=== PATIENT | female | born 1965 | race Caucasian/White ===

== ENCOUNTER 2020-08-27 17:53 | Emergency (ER) | payer MEDICARE, OTHER ==
[~2020-08-27] VITALS: Ht 160 cm; Wt 59.0 kg
[2020-08-27] MEDS ORDERED: HYDROCODONE/APAP 5-325MG TABLET PO ONE (18:45)
[2020-08-27] MEDS ORDERED: HYDROCODONE/APAP 5-325MG TABLET ONE (18:46)
[2020-08-27] MEDS ORDERED: TRAMADOL HCL 50 MG TABLET PO ONE (18:47)
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
[2020-08-27] MEDS ORDERED: TRAMADOL HCL 50 MG TABLET ONE (18:53)
--- NOTE | 2020-08-27 19:38 | NUR ---
Patient given till 1999, then will be escorted to waiting room to wait for her ride.
--- NOTE | 2020-08-27 20:06 | NUR ---
Patient wishes to speak to web content & social media manager in the morning. Patient discharged to waiting room and will wait till the AM. ERMD aware. Patient A/Ox4. Denies any SI/HI or A/V hallucincations. Patient is able to ambulate with steady gait.
[2020-08-28] MEDS ORDERED: POTA20TA10 PO (06:10)
== END 2020-08-27 20:08 | disposition home or self-care (01) ==
LOC: ER 17:58
DX: K03.81 Cracked tooth (principal); G89.29 Other chronic pain; K08.89 Other specified disorders of teeth and supporting structures; Z76.5 Malingerer [conscious simulation]; Z59.0 Homelessness; Z88.8 Allergy status to other drugs, medicaments and biological substances; F41.8 Other specified anxiety disorders
CPT/HCPCS: A4663

== ENCOUNTER 2020-08-28 01:17 | Inpatient (IN) | payer MEDICARE, OTHER ==
[~2020-08-28] VITALS: Ht 160 cm; Wt 60.8 kg
--- NOTE | 2020-08-28 01:34 | NUR ---
Patient BIB RA909. Patient ambulatory with stable gait. A/Ox4. Patient was found laying in the grass in front of [employer] down the street. VSS. Respiratory even and unlabored, no cough no sob. Denies any cp or palpitations, or any cardiovascular distress.
[2020-08-28 01:52] LABS: BASOPHILS # (AUTO) 0.1 K/uL (0.0-8.0); BASOPHILS % (AUTO) 1.1 % (0.0-2.0); EOSINOPHILS # (AUTO) 0.3 K/uL (0.0-0.7); EOSINOPHILS % (AUTO) 2.8 % (0.0-7.0); HEMATOCRIT 28.6 % (31.2-41.9); HEMOGLOBIN 9.6 g/dL (10.9-14.3); LYMPHOCYTES # (AUTO) 2.8 K/uL (20.0-40.0); LYMPHOCYTES % (AUTO) 31.6 % (20.5-51.5); MEAN CORPUSCULAR HEMOGLOBIN 28.1 uug (24.7-32.8); MEAN CORPUSCULAR HGB CONC 34 g/dL (32.3-35.6); MONOCYTES # (AUTO) 0.7 K/uL (2.0-10.0); MONOCYTES % (AUTO) 8.2 % (0.0-11.0); NEUTROPHILS % (AUTO) 56.3 % (38.5-71.5); PLATELET COUNT (AUTO) 457 K/uL (179-408); RED BLOOD CELL COUNT(AUTO) 3.41 MIL/uL (3.63-4.92); WHITE BLOOD COUNT (AUTO) 8.9 K/uL (3.8-11.8)
[2020-08-28 01:59] LABS: ALANINE AMINOTRANSFERASE 18 U/L (14-59); ALKALINE PHOSPHATASE 93 U/L (50-136); ASPARTATE AMINOTRANSFERASE 14 U/L (15-37); BILIRUBIN,DIRECT < 0.1 mg/dL (0.0-0.2); BILIRUBIN,TOTAL 0.1 mg/dL (0.2-1.0); CARBON DIOXIDE 31 mmol/L (21-32); CHLORIDE 102 mmol/L (98-107); CREATININE 0.8 mg/dL (0.6-1.3); GLUCOSE 80 mg/dL (74-106); LIPASE 174 U/L (73-393); POTASSIUM 2.9 mmol/L (3.5-5.1); TOTAL PROTEIN, SERUM 7.2 g/dL (6.4-8.2); UREA NITROGEN, BLOOD 19 mg/dL (7-18)
[2020-08-28] MEDS ORDERED: POTASSIUM CHLORIDE 20 MEQ TAB.PRT.SR PO ONE (02:15)
--- NOTE | 2020-08-28 02:15 | NUR ---
Message left on Caryn, Crisis Team voicemail. Awaiting call back
[2020-08-28] MEDS ORDERED: POTASSIUM CHLORIDE 20 MEQ TAB.PRT.SR ONE (02:22)
--- NOTE | 2020-08-28 02:22 | NUR ---
Patient asked to provide a urine specimen, but states that she is unable at this time.
--- NOTE | 2020-08-28 02:38 | NUR ---
Caryn from crisis team called at [phone] without answer, message left with previous call
[2020-08-28 02:44] LABS: ETHANOL < 3 MG/DL (0-0)
[2020-08-28 02:45] LABS: ACETAMINOPHEN < 2.0 ug/mL (10-30)
--- NOTE | 2020-08-28 03:18 | NUR ---
Neil Wall was contacted and he said he wants to wait for urine drug screen to result then will come to evaluate the patient.
[2020-08-28 03:20] LABS: *BILIRUBIN,URIN NEGATIVE (NEGATIVE); *COLOR,URINE YELLOW (YELLOW); *KETONES,URINE NEGATIVE (NEGATIVE); *UROBILINOGEN,URINE 0.2 E.U./dl (NORMAL); LEUKOCYTE ESTERASE ,URINE TRACE (NEGATIVE); NITRITE, URINE NEGATIVE (NEGATIVE); PH,URINE 6.5 (5.0-8.0); UGLUCOSE NEGATIVE (NEGATIVE)
[2020-08-28 03:21] LABS: *BLOOD, URINE TRACE (NEGATIVE); *CLARITY,URINE HAZY (CLEAR)
[2020-08-28 03:36] LABS: *AMPHETAMINE, URINE POSITIVE (NEGATIVE); *CANNABINOID, URINE NEGATIVE (NEGATIVE); *COCCAINE, URINE NEGATIVE (NEGATIVE); *OPIATE, URINE NEGATIVE (NEGATIVE); *PHENCYCLIDINE SCREEN,URINE NEGATIVE (NEGATIVE)
[2020-08-28 03:40] LABS: BACTERIA,URINE MODERATE /HPF (NONE SEEN); SQUAMOUS EPITHELIAL CELL,UR MANY /HPF (NONE SEEN)
--- NOTE | 2020-08-28 03:49 | NUR ---
Neil Wall LCSW was notified of the UDS results. Art states to medicate the patient and he will see the patient later on in the morning time. ERMD aware. Will continue to observe/monitor. Patient is sleeping, no acute distress noted at this time.
[2020-08-28] MEDS ORDERED: CEphaleXIN 500 MG CAPSULE ONE (04:07)
[2020-08-28] MEDS ORDERED: CEphaleXIN 500 MG CAPSULE PO ONE (04:15)
--- NOTE | 2020-08-28 04:30 | NUR ---
Patient in bed sleeping, no acute distress noted. Will continue to monitor.
[2020-08-28] MEDS ORDERED: POTA20TA10 PO (06:10)
--- NOTE | 2020-08-28 06:10 | NUR ---
Neil Wall LCSW still has not arrived. Art did not answer, left message. Awaiting call back/arrival.
--- NOTE | 2020-08-28 06:57 | NUR ---
Neil Wall LCSW states that he will be on the way shortly ETA within the hour to evaluate the patient.
--- NOTE | 2020-08-28 07:38 | NUR ---
[facility] En abad per Dr. Valentín boone request talked to robb. robb said that there should be room avaiable after 11 am today, cj asked to fax the clinicals/ face sheet to [phone] around 0900 today.
--- NOTE | 2020-08-28 08:40 | NUR ---
bib gross at bedside.
--- NOTE | 2020-08-28 09:10 | NUR ---
hospital bf tray at bedside.
[2020-08-28 12:15] VITALS: BP_SYST 121; BP_SYST 131; BP_DIAS 59; BP_DIAS 68
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
--- NOTE | 2020-08-28 13:57 | NUR ---
Firearms Report DOJ: Cook Candy completed and submitted a [employer] firearms report for 5150 grave disability certification. A copy of report has been placed in patient chart.
--- NOTE | 2020-08-28 13:57 | NUR ---
SW Initial Discharge: Pt is currently homeless and will require a facility. Pt would want this specification writer to help pt find a place. This specification writer contacted pt's brother Jose ([phone]) to gather collateral and to discuss treatment plan. This specification writer contacted the phone number on facesheet but the number was disconnected. This specification writer will work with the MD to help coordinate proper discharge.
--- NOTE | 2020-08-28 13:57 | NUR ---
SW Family Contact: This publicity writer contacted pt's brother Jose ([phone]) to gather collateral and to discuss treatment plan. This publicity writer contacted the phone number on [employer] but the number was disconnected.
[2020-08-28] MEDS ORDERED: MAGNESIUM HYDROXIDE 30 ML LIQUID UDC PO PRN (14:00)
[2020-08-28] MEDS ORDERED: ACETAMINOPHEN 325 MG TABLET PO PRN (14:00)
[2020-08-28] MEDS ORDERED: TEMAZEPAM 7.5 MG CAPSULE PO PRN (14:00)
[2020-08-28] MEDS ORDERED: MAG HYDROX/AL HYDROX/SIMETH 30 ML LIQUID UDC PO PRN (14:00)
--- NOTE | 2020-08-28 14:14 | NUR ---
SW Substance Abuse Intervention: Patient was provided with a brief substance abuse intervention and provided resources to [facility] ([phone]), [facility] ([phone]), and [facility] ([phone]).
[2020-08-28] MEDS: CEphaleXIN 500 MG CAPSULE PO SCH ×2 (15:34→21:01)
[2020-08-28] MEDS: LORAZEPAM 1 MG TABLET PO PRN (15:41)
[2020-08-28 16:37] VITALS: BP 131/68
[2020-08-28] MEDS ORDERED: POTASSIUM CHLORIDE 20 MEQ TAB.PRT.SR PO SCH (17:00)
--- NOTE | 2020-08-28 17:38 | NUR ---
PATIENT IS MORE COOPERATIVE AT THIS TIME COMPLIANT WITH MEDICATIONS WAS MEDICATED WITH ATIVAN SHE STATED THAT SHE FEELS VERY ANXIOUS MRSA NARES COLLECTED AND SENT TO THE LAB DR VITALE ALSO CALLED AND SPOKE WITH THE PATIENT WILL CONTINUE TO OBSERVE.
[2020-08-28 20:04] VITALS: BP 114/43
[2020-08-28] MEDS: METOPROLOL TARTRATE 25 MG TABLET PO SCH (20:55)
--- NOTE | 2020-08-28 21:29 | NUR ---
Awake alert and oriented x3-4 Cooperative with care. Compliant with meds. Needs attended. Denies any pain nor any discomfort. No signs of agitation or restlessness. No inappropriate behavior noted. Will monitor patient. VSS.
[2020-08-29] MEDS: CEphaleXIN 500 MG CAPSULE PO SCH ×3 (05:19→21:09)
--- NOTE | 2020-08-29 05:54 | NUR ---
Slept well through out the night. Needs attended. Kept comfortable. On keflex `for UTI, given @ scheduled times. Will monitor patient. No distress noted.
[2020-08-29 07:30] VITALS: BP 134/65
[2020-08-29 07:44] LABS: BASOPHILS # (AUTO) 0.1 K/uL (0.0-8.0); BASOPHILS % (AUTO) 1.3 % (0.0-2.0); EOSINOPHILS # (AUTO) 0.2 K/uL (0.0-0.7); EOSINOPHILS % (AUTO) 2.3 % (0.0-7.0); HEMATOCRIT 27.3 % (31.2-41.9); HEMOGLOBIN 9.3 g/dL (10.9-14.3); LYMPHOCYTES # (AUTO) 2.2 K/uL (20.0-40.0); LYMPHOCYTES % (AUTO) 26.2 % (20.5-51.5); MEAN CORPUSCULAR HEMOGLOBIN 28.4 uug (24.7-32.8); MEAN CORPUSCULAR HGB CONC 34 g/dL (32.3-35.6); MEAN CORPUSCULAR VOLUME 83.5 fL (75.5-95.3); MONOCYTES # (AUTO) 0.6 K/uL (2.0-10.0); MONOCYTES % (AUTO) 7.7 % (0.0-11.0); NEUTROPHILS # (AUTO) 5.2 K/uL (1.8-8.9); NEUTROPHILS % (AUTO) 62.5 % (38.5-71.5); PLATELET COUNT (AUTO) 442 K/uL (179-408); RED BLOOD CELL COUNT(AUTO) 3.27 MIL/uL (3.63-4.92); WHITE BLOOD COUNT (AUTO) 8.4 K/uL (3.8-11.8)
[2020-08-29 07:56] LABS: THYROID STIMULATING HORMONE 0.685 mIU/mL (0.358-3.740)
[2020-08-29] MEDS: ESCITALOPRAM OXALATE 10 MG TABLET PO SCH (08:05)
[2020-08-29] MEDS: METOPROLOL TARTRATE 25 MG TABLET PO SCH ×2 (08:06→21:11)
[2020-08-29 08:16] LABS: BILIRUBIN,TOTAL 0.2 mg/dL (0.2-1.0); CREATININE 0.7 mg/dL (0.6-1.3); MAGNESIUM 2.1 mg/dL (1.8-2.4); PHOSPHOROUS 2.9 mg/dL (2.5-4.9); POTASSIUM 3.6 mmol/L (3.5-5.1); TOTAL PROTEIN, SERUM 6.3 g/dL (6.4-8.2)
--- NOTE | 2020-08-29 09:37 | NUR ---
SNF Referral: This sent clinicals to Priyanka ([phone]) to [facility]. This internal communications writer sent H & P notes, medications, and laboratory results.
[2020-08-29 16:00] VITALS: BP 126/77
[2020-08-29] MEDS: ENSURE ENLIVE (VAN) 240 ML LIQUID PO SCH (17:00)
--- NOTE | 2020-08-29 17:25 | NUR ---
received patient AOx3-4, patient has poor insights, isolative, anxious, needy, asking for cranberry juice, patient took a shower but refused to change clothing, patient has been getting phone call with the boyfriend/fiancee, patient has calm mood, however, soft speech, maintained eye contact, denies SI and Hi, denies Having AH and VH, monitored q 15minutes for safety, refused to attend group activities, compliant with medication, patient remain isolative , no sign of any distress at this time
[2020-08-29 20:07] VITALS: BP 139/70
[2020-08-30] MEDS: CEphaleXIN 500 MG CAPSULE PO SCH ×3 (05:42→21:19)
[2020-08-30 07:30] VITALS: BP 159/65
[2020-08-30] MEDS: ENSURE ENLIVE (VAN) 240 ML LIQUID PO SCH ×2 (08:00→17:00)
[2020-08-30] MEDS: ESCITALOPRAM OXALATE 10 MG TABLET PO SCH (08:04)
[2020-08-30] MEDS: METOPROLOL TARTRATE 25 MG TABLET PO SCH ×2 (08:04→20:20)
--- NOTE | 2020-08-30 13:06 | NUR ---
SNF Contact: This keno writer/runner received a phone call from [employer] admin ([phone]) who stated [facility] is unable to accept pts at the moment due to positive covid pt. This keno writer/runner received a phone call from Irma from [facility] ([phone]) who stated pt is accepted.
--- NOTE | 2020-08-30 14:55 | NUR ---
SW Note: This brief writer met with pt to discuss discharge plan. Pt stated that she wants to move back in with her partner Franike ([phone]) who is willing to accept pt at his home. This brief writer will contact Frankie to confirm.
--- NOTE | 2020-08-30 14:55 | NUR ---
SW Family Contact: This technical writer contacted pt's partner Frankie ([phone]) to discuss discharge plan. Frankie stated upon discharge he will pick pt up from the hospital and will take her back to his place. Address: [address] [place] [address], [place] [address]; ([phone]).
--- NOTE | 2020-08-30 15:40 | NUR ---
Individual Intervention: trail maintenance worker met with patient for brief counseling to address patient's paranoid thought content. Patient appeared with low mood and withdrawn in her room. Patient did not want individual counseling at this moment. She stated "I have a UTI, I don't feel that great right now... Please come back later". This abstract writer attempted to provide therapy but pt refused.
[2020-08-30 16:13] VITALS: BP 133/72
--- NOTE | 2020-08-30 18:10 | NUR ---
received patient AOx3-4,compliant with meds, isolative withdrawn, patient needy been asking for ice and cranberry juice , patient increased appetite, needs to set limit, patient no distress at this time denies SI and Hi
[2020-08-30 20:25] VITALS: BP 124/63
[2020-08-31] MEDS: CEphaleXIN 500 MG CAPSULE PO SCH ×3 (06:00→20:19)
[2020-08-31 07:30] VITALS: BP 111/52
[2020-08-31] MEDS: ENSURE ENLIVE (VAN) 240 ML LIQUID PO SCH ×2 (08:00→17:00)
[2020-08-31] MEDS: ESCITALOPRAM OXALATE 10 MG TABLET PO SCH (08:23)
[2020-08-31] MEDS: METOPROLOL TARTRATE 25 MG TABLET PO SCH ×2 (08:23→20:20)
--- NOTE | 2020-08-31 11:06 | NUR ---
SW Note: This machine sign writer discussed discharge plan with pt again and stated she has options and is accepted at [facility] ([phone]). Patient refused and stated "I do not need to got a SNF I am young". She stated she wants to move in with her boyfriend Frankie. Patient refuses any other placements.
--- NOTE | 2020-08-31 14:11 | NUR ---
Pt quite needy at this time. Noted with impaired thought process. Requested grievance paperwork because she was unsatisfied that Dr. Greer spoke to her via Zoom. Also adjusto writer operator received a call from [facility] stating pt called them and asking them for a grievance form. Grievance form given to pt. Pt then states she wants to talk to the "short charge nurse with the blonde hair." Explained to her that is a social worker palliative care Mary Anne and this adjusto writer operator is the charge nurse. Pt does not believe adjusto writer operator and demanded for adjusto writer operator to call Mary Anne at once. Explained that she will come to unit sometime today. Pt then stated " If you're not gonna call her, then i'm going to have to tell Dr. Moody about you," and walked away.
--- NOTE | 2020-08-31 14:41 | NUR ---
Pt came to nurses station stating "Theirs something burning in my room." Casting Technician immediately followed pt to her room and did not smell or see anything unusual. Pt then stated "oh, it must have gone away."
[2020-08-31 16:00] VITALS: BP 135/61
[2020-08-31 19:51] VITALS: BP 152/75
[2020-09-01] MEDS: CEphaleXIN 500 MG CAPSULE PO SCH ×3 (05:54→21:13)
[2020-09-01 07:30] VITALS: BP 124/48
[2020-09-01] MEDS: ESCITALOPRAM OXALATE 10 MG TABLET PO SCH (08:26)
[2020-09-01] MEDS: ENSURE ENLIVE (VAN) 240 ML LIQUID PO SCH ×2 (08:26→17:20)
[2020-09-01] MEDS: METOPROLOL TARTRATE 25 MG TABLET PO SCH ×2 (08:27→21:09)
--- NOTE | 2020-09-01 10:52 | NUR ---
PT REMAINS EXCESSIVELY NEEDY AT THIS TIME. FREQUENTLY AT NURSES STATION MAKING MULTIPLE REQUESTS "I WANT CRANBERRY JUICE...I WANT ICE...I WANT THE PHONE... I NEED THINGS FROM MY BAG..." WHEN NURSES ARE BUSY WITH OTHER PTS, PT CONTINUES TO MAKE REQUESTS. LIMIT SETTING PROVIDED.
[2020-09-01 15:30] VITALS: BP 137/72
--- NOTE | 2020-09-01 16:20 | NUR ---
patient is anxious, restless, has poor boundaries, and is needy. patient is frequently at the nurses station asking for multiple different items. when staff attempts to limit set with patient, patient becomes angry. patient is also manipulative, asking different staff after limits have been set. patient provided with education about how to appropriately communicate her needs to staff and educated about impulse control.
--- NOTE | 2020-09-01 18:46 | NUR ---
patient at the nurses station asking for multiple diapers. she states that at night she becomes incontinent and wants to wear diapers. patient stated this happens 'all the time' but she has not mentioned this to staff before, nor mentioned to the MD. patient became angry when staff attempted to engage in further assessment about incontinence issues at night and refused to answer questions. she walked back to her room and stated "i'll talk to the night nurse." patient has had no episodes of incontinence at night or during the day since admission. patient is able to toilet herself independently.
[2020-09-01 19:52] VITALS: BP 127/65
--- NOTE | 2020-09-02 01:35 | NUR ---
RECEIVED PATIENT IN HER ROOM. SHE LATER CAME OUT TO DEMAND I GIVE HER A DIAPER. SHE SAID SHE WAS INCONTINENT AT NIGHT.WHEN I TOLD HER I WILL GIVE HER A PAD AND MONITOR THROUGH THE NIGHT TO SEE. SHE BECAME VERY ANGRY SAYING ' CALL MY DOCTOR. AM GOING TO REPORT ALL OF YOU. WHAT'S THE BIG DEAL ABOUT THIS'. LATER EDUCATED ABOUT HOW TO PROPERLY COMMUNICATE HER NEEDS AND IMPULSE CONTROL. SHE IS MEDICATION COMPLIANT. WILL CONTINUE TO MONITOR.
[2020-09-02] MEDS: CEphaleXIN 500 MG CAPSULE PO SCH ×2 (06:08→14:40)
--- NOTE | 2020-09-02 06:46 | NUR ---
SLEPT WELL FOR 9:00 HOURS.
[2020-09-02 07:30] VITALS: BP 118/60
[2020-09-02] MEDS: METOPROLOL TARTRATE 25 MG TABLET PO SCH ×2 (08:44→20:17)
[2020-09-02] MEDS: ESCITALOPRAM OXALATE 10 MG TABLET PO SCH (08:44)
[2020-09-02] MEDS: ENSURE ENLIVE (VAN) 240 ML LIQUID PO SCH ×2 (08:57→16:51)
--- NOTE | 2020-09-02 09:15 | NUR ---
PATIENT IS ASKING FOR CRANBERRY JUICE AND ICE SO OFFERED HER APPLE JUICE BECAUSE THERE WAS NO CRANBERRY JUICE IN THE FRIDGE UPSET THAT THERE SHOULD BE CRANBERRY JUICE IN THE FRIDGE AT ALL TIMES SO I TOLD HER THAT I WILL CALL THE KITCHEN FOR MORE CRANBERRY JUICE.
--- NOTE | 2020-09-02 09:30 | NUR ---
PATIENT SEEN WALKING UP AND DOWN BY THE [employer] STATION IN THE HALLWAY DRINKING THE APPLE JUICE.
--- NOTE | 2020-09-02 11:00 | NUR ---
PATIENT APPROACHED THE NURSES STATION STATED THAT SHE WANTED SAND WISH FOR LUNCH INSTEAD OF A MEAL KITCHEN NOTIFIED.
[2020-09-02 16:00] VITALS: BP 125/63
--- NOTE | 2020-09-02 17:00 | NUR ---
PATIENT IS AT THE NURSES STATED VERY OFTEN ASKING FOR ONE THING OR THE OTHER AND WHEN SHE IS TOLD TO WAIT FOR A FEW MINUTES FOR SOMETHING TO BE GIVEN TO HER SHE LEAVES AND SORT OUT ANOTHER PERSON AND ASKS FOR THE SAME THING.ENCOURAGED TO BE PATIENT HER WISHES/NEEDS WILL BE MET JARAD.
[2020-09-02 20:13] VITALS: BP 105/51
--- NOTE | 2020-09-03 05:44 | NUR ---
Received patient in the hallway asking for 2 juices. Then service writer observed patient asking another nurse for the same thing despite limits having been set. Patient slept 8.00 hours last night, is medication compliant , but when awake, this patient is very needy, manipulative and disregarded any limit setting.
[2020-09-03 07:30] VITALS: BP 118/69
[2020-09-03] MEDS: ENSURE ENLIVE (VAN) 240 ML LIQUID PO SCH ×2 (08:33→17:56)
[2020-09-03] MEDS: ESCITALOPRAM OXALATE 10 MG TABLET PO SCH (08:34)
[2020-09-03] MEDS: METOPROLOL TARTRATE 25 MG TABLET PO SCH ×2 (08:34→20:07)
--- NOTE | 2020-09-03 09:14 | NUR ---
patient resting quietly in her assigned room. she is cooperative, redirectable, and has appropriate interaction with staff. patient denies SI/HI, denies AH/VH. patient is adherent with medication, no adverse reaction noted. able to ambulate independently and perform self care and ADL's. patient encouraged to participate in unit groups and therapeutic milieu.
--- NOTE | 2020-09-03 09:53 | NUR ---
SW Family Contact: This repairer typewriter contacted pt's partner Frankie ([phone]) and discussed pt's well-being at home. He stated he will be taking care of pt and will cone picker pt tomorrow at 12PM.
--- NOTE | 2020-09-03 10:29 | NUR ---
Coordination of Care: Patient will follow up with (Methods Study Analyst) Dr. Grey located [facility] [place] [address]; ([phone]) walk-in Thursday, Thursday, , Thursday between 9:45AM. Patient has an appointment for an intake evaluation with a (psychiatrist) at [address] [address]; ([phone]) on September 10 at 11AM.
--- NOTE | 2020-09-03 11:07 | NUR ---
Individual Intervention: pull worker met with patient for brief counseling to address patient's paranoid thought content. Patient appeared with euthymic mood and stated she is excited for her new journey with her boyfriend. She stated she is independent and is capable of taking care of herself. This television writer actively listened and provided emotional support.
--- NOTE | 2020-09-03 15:01 | NUR ---
[facility] Hearing: Patient had probable cause hearing today and it was upheld for grave disability.
[2020-09-03 15:33] VITALS: BP 127/60
[2020-09-03] MEDS: LORAZEPAM 1 MG TABLET PO PRN ×2 (16:00→21:13)
[2020-09-03 20:14] VITALS: BP 118/64
--- NOTE | 2020-09-04 01:24 | NUR ---
RECEIVED PATIENT IN HER ROOM. CALM AND COOPERATIVE WITH STAFF FOR HER CARE. DENIES SI/HI. SHE IS MEDICATION COMPLIANT.VISUAL CHECKS MADE ON HER. WILL CONTINUE TO MONITOR.
[2020-09-04] MEDS: LORAZEPAM 1 MG TABLET PO PRN ×2 (06:37→12:32)
--- NOTE | 2020-09-04 06:53 | NUR ---
SLEPT FOR 06:00 HOURS.REQUESTED FOR AN ATIVAN 1MG AT 06:30.
[2020-09-04 07:48] VITALS: BP 120/67
[2020-09-04 08:15] VITALS: BP 120/67
[2020-09-04] MEDS: ESCITALOPRAM OXALATE 10 MG TABLET PO SCH (08:15)
[2020-09-04] MEDS: METOPROLOL TARTRATE 25 MG TABLET PO SCH (08:15)
[2020-09-04] MEDS: ENSURE ENLIVE (VAN) 240 ML LIQUID PO SCH (08:16)
--- NOTE | 2020-09-04 08:18 | NUR ---
SW Discharge Note: Patient will be discharged to her partner Cara home [address] [place] [address]; ([phone]). Patients partner Frankie ([phone]) will waste picker patient at 12PM. Upon discharge, patient appears to be calm, cooperative and happy to be going back home. Patient appeared alert and oriented x4. Patient denies suicidal and homicidal ideation. Patient will follow up with (Goodwill Representative) Dr. Grey located [address] [place] [address]; ([phone]) walk-in Thursday, Thursday, , Thursday between 9:45AM. Patient has an appointment for an intake evaluation with a (psychiatrist) at [address] [address]; ([phone]) on September 10 at 11AM. Patient was provided with outpatient mental health resources to [facility] Crisis Line , and the [employer] Suicide Prevention Lifeline . Patient was provided referrals to the following substance abuse programs: [facility] Substance Abuse Self-helpline ([phone]); [facility] [address] [place] [address] ([phone]); [address] [place] [address] ([phone]); [facility] ([phone]); [facility] ([phone]); [facility] ([phone]); [facility] ([phone]). Patient presented with euthymic mood and congruent affect. Patient signed the homeless waiver form and a copy was placed in the chart.
--- NOTE | 2020-09-04 10:04 | NUR ---
t[facility] [place], spoke with the [facility]ist, [facility], spoke with patient and she said that [facility] [address] tel [phone], spoke with, called in prescription spoke with anastacia (phamacist)
--- NOTE | 2020-09-04 13:00 | NUR ---
SW Family Contact: This contract technical writer contacted pt's partner Frankie ([phone]) who stated he is running late due to "some issues" and will be here at 1.15pm. This contract technical writer contacted Frankie again and he ignored this writers call. This contract technical writer left a detailed voicemail.
--- NOTE | 2020-09-04 14:00 | NUR ---
Patient discharged to her partner Louies home today at 2pm. Patients partner Frankie here and picked edge sewing machine operator patient by car. all personal belonging returned to patient. discharge instruction given to patient,denies any SI/HI.vital sign stable.
== END 2020-09-04 14:00 | disposition home or self-care (01) | DRG 885 ==
LOC: ER 01:22 → GPS 11:41
PROVIDERS: ADMIT Psychiatry & Neurology Psychiatry; ATTEND Internal Medicine
DX: F33.2 Major depressive disorder, recurrent severe without psychotic features (principal); B95.1 Streptococcus, group B, as the cause of diseases classified elsewhere; R45.851 Suicidal ideations; N39.0 Urinary tract infection, site not specified; E44.0 Moderate protein-calorie malnutrition; Z59.0 Homelessness; E87.6 Hypokalemia; D50.9 Iron deficiency anemia, unspecified; G89.29 Other chronic pain; I10 Essential (primary) hypertension; Z68.23 Body mass index [BMI] 23.0-23.9, adult; E53.8 Deficiency of other specified B group vitamins; F41.9 Anxiety disorder, unspecified; F15.10 Other stimulant abuse, uncomplicated; Z87.891 Personal history of nicotine dependence
CPT/HCPCS: 36415; 70030-TC; 71045; 83690; 83735; 84100; 84443; 85025; 87086; 93005; A4663; G0480

== ENCOUNTER 2021-04-18 17:07 | Emergency (ER) | payer MEDICARE, OTHER ==
[~2021-04-18] VITALS: Ht 160 cm; Wt 63.5 kg
[~2021-04-18 17:07] MED LIST: POTA20TA10 PO
[2021-04-18] MEDS ORDERED: DICYCLOMINE HCL 20 MG/2 ML AMPUL IM SCH (17:30)
[2021-04-18] MEDS ORDERED: IV NORMAL SALINE 1000 ML BAG IV ONE (17:30)
[2021-04-18 17:57] LABS: HEMATOCRIT 38.3 % (31.2-41.9); MEAN CORPUSCULAR VOLUME 83.6 fL (75.5-95.3); PLATELET COUNT (AUTO) 424 K/uL (179-408)
[2021-04-18 18:04] LABS: CREATININE 0.7 mg/dL (0.6-1.3); POTASSIUM 3.8 mmol/L (3.5-5.1)
[2021-04-18 18:09] LABS: BILIRUBIN,DIRECT 0.1 mg/dL (0.0-0.2); BILIRUBIN,TOTAL 0.2 mg/dL (0.2-1.0); TOTAL PROTEIN, SERUM 8.2 g/dL (6.4-8.2)
[2021-04-18] MEDS ORDERED: KETOROLAC TROMETHAMINE 15 MG INJ IVP ONE (18:30)
[2021-04-18] MEDS ORDERED: ONDANSETRON 4 MG/2 ML VIAL IV ONE (18:30)
[2021-04-18] MEDS ORDERED: IOHEXOL 300MG/ML 100 ML INFUS..BTL ONE (18:43)
[2021-04-18] MEDS ORDERED: SWABABLE VALVE TRANSFER SET EA MC ONE (18:43)
[2021-04-18] MEDS ORDERED: IV NORMAL SALINE 250 ML IV ONE (18:43)
[2021-04-18] MEDS ORDERED: ONDANSETRON 4 MG/2 ML VIAL ONE (18:55)
[2021-04-18] MEDS ORDERED: KETOROLAC TROMETHAMINE 15 MG INJ ONE (18:55)
[2021-04-18] MEDS ORDERED: ONDA4TAB5 PO (20:14)
[2021-04-18] MEDS ORDERED: TRAM50TA2 PO (20:14)
[2021-04-18 21:00] VITALS: BP 122/76
--- NOTE | 2021-04-18 21:00 | NUR ---
Patient discharged to home in stable condition. Written and verbal after care instructions given. Patient verbalizes understanding of instructions. Stressed follow up or return to ER for worsening s/s. Patient ambulates with steady gait, V/S stable, IV line removed, left with all personal belongings.
== END 2021-04-18 21:00 | disposition home or self-care (01) ==
LOC: ER 17:07
DX: R10.9 Unspecified abdominal pain (principal); G89.4 Chronic pain syndrome; R11.0 Nausea; F41.9 Anxiety disorder, unspecified; Z90.49 Acquired absence of other specified parts of digestive tract
CPT/HCPCS: 36415; 74177; 76700; 76937; 80048; 80076; 83690; 85025; 96361; 96374; 96375; 99285; J1885; J2405; Q9967; A4663; J7030; J7050

== ENCOUNTER 2023-06-16 15:43 | Inpatient (IN) | payer MEDICARE, OTHER ==
[~2023-06-16] VITALS: Ht 160 cm; Wt 70.3 kg
[~2023-06-16 15:43] MED LIST changes: +ONDA4TAB5 PO; +POTA-194 PO; -POTA20TA10 PO; +TRAM50TA2 PO
[2023-06-16] MEDS ORDERED: LORAZEPAM 0.5 MG TABLET PO ONE (16:15)
[2023-06-16] MEDS ORDERED: LORAZEPAM 0.5 MG TABLET ONE (16:34)
[2023-06-16] MEDS ORDERED: ARIPIPRAZOLE 5 MG TABLET PO STA (16:44)
[2023-06-16 16:45] LABS: BASOPHILS # (AUTO) 0.1 K/UL (0.0-0.2); EOSINOPHILS # (AUTO) 0.1 K/uL (0.0-0.7); HEMATOCRIT 35.5 % (31.2-41.9); HEMOGLOBIN 11.5 g/dL (10.9-14.3); LYMPHOCYTES # (AUTO) 2.1 K/uL (0.8-4.8); LYMPHOCYTES % (AUTO) 24.3 % (20.5-51.5); MEAN CORPUSCULAR HEMOGLOBIN 26.7 uug (24.7-32.8); MEAN CORPUSCULAR HGB CONC 32 g/dL (32.3-35.6); MEAN CORPUSCULAR VOLUME 82.3 fL (75.5-95.3); MONOCYTES # (AUTO) 0.7 K/uL (0.1-1.30); NEUTROPHILS # (AUTO) 5.7 K/uL (1.8-8.9); NEUTROPHILS % (AUTO) 65.7 % (38.5-71.5); PLATELET COUNT (AUTO) 363 K/uL (179-408); RED BLOOD CELL COUNT(AUTO) 4.31 MIL/uL (3.63-4.92); RED CELL DISTRIBUTION WIDTH 13.2 % (12.3-17.7); WHITE BLOOD COUNT (AUTO) 8.6 K/uL (3.8-11.8)
[2023-06-16 17:04] LABS: DIFFERENTIAL COMMENT 1
[2023-06-16 17:05] LABS: ETHANOL < 3 MG/DL (0-10)
[2023-06-16 17:10] LABS: CALCIUM 9.2 mg/dL (8.5-10.1); CARBON DIOXIDE 29 mmol/L (21-32); CHLORIDE 98 mmol/L (98-107); CREATININE 1.2 mg/dL (0.6-1.3); GLUCOSE 89 mg/dL (74-106); SODIUM SERUM 137 mmol/L (136-145); UREA NITROGEN, BLOOD 25 mg/dL (7-18)
[2023-06-16 17:13] LABS: POTASSIUM 2.7 mmol/L (3.5-5.1)
[2023-06-16 17:14] LABS: ALANINE AMINOTRANSFERASE 20 U/L (14-59); ALBUMIN 3.3 g/dL (3.4-5.0); ALKALINE PHOSPHATASE 136 U/L (50-136); ASPARTATE AMINOTRANSFERASE 15 U/L (15-37); BILIRUBIN,DIRECT 0.1 mg/dL (0.0-0.2); BILIRUBIN,TOTAL 0.5 mg/dL (0.2-1.0); TOTAL PROTEIN, SERUM 7.5 g/dL (6.4-8.2)
[2023-06-16] MEDS ORDERED: POTASSIUM CHLORIDE 20 MEQ TAB.PRT.SR PO ONE (17:15)
[2023-06-16 17:17] LABS: ACETAMINOPHEN < 2.0 ug/mL (10-30)
[2023-06-16] MEDS ORDERED: POTASSIUM CHLORIDE 20 MEQ TAB.PRT.SR ONE (17:18)
[2023-06-16] MEDS ORDERED: ARIPIPRAZOLE 5 MG TABLET ONE (17:18)
[2023-06-16] MEDS ORDERED: FLUO20TA28 PO (17:52)
[2023-06-16] MEDS ORDERED: ARIP15TA3 PO (17:53)
[2023-06-16 20:13] VITALS: BP 122/64; TEMP 98.3; O2SAT 100
[2023-06-16] MEDS ORDERED: MAGNESIUM HYDROXIDE 30 ML LIQUID UDC PO PRN (22:00)
[2023-06-16] MEDS ORDERED: MAG HYDROX/AL HYDROX/SIMETH 30 ML LIQUID UDC PO PRN (22:00)
[2023-06-16] MEDS ORDERED: TEMAZEPAM 7.5 MG CAPSULE PO PRN (22:00)
[2023-06-17 07:24] LABS: BASOPHILS # (AUTO) 0.1 K/UL (0.0-0.2); BASOPHILS % (AUTO) 0.8 % (0.0-2.0); EOSINOPHILS # (AUTO) 0.1 K/uL (0.0-0.7); EOSINOPHILS % (AUTO) 1.8 % (0.0-7.0); HEMATOCRIT 34.3 % (31.2-41.9); HEMOGLOBIN 11.2 g/dL (10.9-14.3); LYMPHOCYTES # (AUTO) 1.3 K/uL (0.8-4.8); LYMPHOCYTES % (AUTO) 17.6 % (20.5-51.5); MEAN CORPUSCULAR HEMOGLOBIN 26.8 uug (24.7-32.8); MEAN CORPUSCULAR HGB CONC 33 g/dL (32.3-35.6); MEAN CORPUSCULAR VOLUME 81.8 fL (75.5-95.3); MONOCYTES # (AUTO) 0.5 K/uL (0.1-1.30); MONOCYTES % (AUTO) 7.5 % (0.0-11.0); NEUTROPHILS # (AUTO) 5.2 K/uL (1.8-8.9); NEUTROPHILS % (AUTO) 72.3 % (38.5-71.5); PLATELET COUNT (AUTO) 342 K/uL (179-408); RED BLOOD CELL COUNT(AUTO) 4.19 MIL/uL (3.63-4.92); RED CELL DISTRIBUTION WIDTH 13.6 % (12.3-17.7); WHITE BLOOD COUNT (AUTO) 7.2 K/uL (3.8-11.8)
[2023-06-17 07:29] LABS: DIFFERENTIAL COMMENT 1
[2023-06-17 07:34] VITALS: BP 116/50; TEMP 98; O2SAT 96
[2023-06-17] MEDS: FLUOXETINE HCL 20 MG CAPSULE PO SCH (10:31)
[2023-06-17] MEDS: ARIPIPRAZOLE 5 MG TABLET PO SCH (10:32)
[2023-06-17 15:01] VITALS: BP 109/45; TEMP 97.6; O2SAT 98
[2023-06-17] MEDS: ACETAMINOPHEN 325 MG TABLET PO PRN (18:24)
[2023-06-17 19:36] VITALS: BP 112/51; TEMP 98.1; O2SAT 96
[2023-06-18 07:54] LABS: CALCIUM 8.5 mg/dL (8.5-10.1); CREATININE 0.6 mg/dL (0.6-1.3); POTASSIUM 3.1 mmol/L (3.5-5.1)
[2023-06-18 07:55] VITALS: BP 111/51; TEMP 97.8; O2SAT 99
[2023-06-18] MEDS: ARIPIPRAZOLE 5 MG TABLET PO SCH (09:27)
[2023-06-18] MEDS: FLUOXETINE HCL 20 MG CAPSULE PO SCH (09:27)
[2023-06-18] MEDS ORDERED: POTASSIUM CHLORIDE 20 MEQ TAB.PRT.SR PO ONE (09:30)
[2023-06-18] MEDS: CLONAZEPAM 0.5 MG TABLET PO PRN ×2 (10:54→20:56)
[2023-06-18 15:01] VITALS: BP 105/47; TEMP 98; O2SAT 99
[2023-06-18 19:55] VITALS: BP 116/50; TEMP 98.1; O2SAT 98
[2023-06-19 07:58] VITALS: BP 114/58; TEMP 98; O2SAT 100
[2023-06-19] MEDS: FLUOXETINE HCL 20 MG CAPSULE PO SCH (08:27)
[2023-06-19] MEDS: ARIPIPRAZOLE 5 MG TABLET PO SCH (08:27)
[2023-06-19] MEDS: ACETAMINOPHEN 325 MG TABLET PO PRN (08:40)
[2023-06-19] MEDS: LORAZEPAM 1 MG TABLET PO PRN ×2 (12:08→21:24)
[2023-06-19 15:15] VITALS: BP 109/48; TEMP 98; O2SAT 98
[2023-06-19 19:46] VITALS: BP 117/54; TEMP 98; O2SAT 99
[2023-06-20 07:47] VITALS: BP 123/57; TEMP 98.2; O2SAT 99
[2023-06-20] MEDS: FLUOXETINE HCL 20 MG CAPSULE PO SCH (08:14)
[2023-06-20] MEDS: ARIPIPRAZOLE 5 MG TABLET PO SCH (08:14)
[2023-06-20] MEDS: LORAZEPAM 1 MG TABLET PO PRN ×3 (08:28→20:42)
[2023-06-20] MEDS: ACETAMINOPHEN 325 MG TABLET PO PRN ×2 (08:29→15:26)
[2023-06-20] MEDS: ENSURE ENLIVE (VAN) 240 ML LIQUID PO SCH (13:35)
[2023-06-20 16:10] VITALS: BP 108/53; TEMP 98.1; O2SAT 100
[2023-06-20 20:00] VITALS: BP 132/53; TEMP 96.2; O2SAT 100
[2023-06-21 08:21] VITALS: BP 130/68; TEMP 98.1; O2SAT 100
[2023-06-21] MEDS: ENSURE ENLIVE (VAN) 240 ML LIQUID PO SCH (09:00)
[2023-06-21] MEDS: ARIPIPRAZOLE 5 MG TABLET PO SCH (09:39)
[2023-06-21] MEDS: FLUOXETINE HCL 20 MG CAPSULE PO SCH (09:41)
[2023-06-21] MEDS: LORAZEPAM 1 MG TABLET PO PRN ×2 (10:28→17:37)
[2023-06-21 16:15] VITALS: BP 140/73; TEMP 98; O2SAT 100
[2023-06-21 19:46] VITALS: BP 136/66; TEMP 98.2; O2SAT 99
[2023-06-22 07:50] VITALS: BP 105/51; TEMP 98.1; O2SAT 99
[2023-06-22] MEDS: FLUOXETINE HCL 20 MG CAPSULE PO SCH ×2 (08:25→20:50)
[2023-06-22] MEDS: ENSURE ENLIVE (VAN) 240 ML LIQUID PO SCH (08:25)
[2023-06-22] MEDS: ARIPIPRAZOLE 5 MG TABLET PO SCH (08:25)
[2023-06-22] MEDS: LORAZEPAM 1 MG TABLET PO PRN ×2 (11:49→18:02)
[2023-06-22 16:03] VITALS: BP 128/72; TEMP 98; O2SAT 99
[2023-06-22 19:34] VITALS: BP 132/79; TEMP 98.1; O2SAT 98
[2023-06-23] MEDS: LORAZEPAM 1 MG TABLET PO PRN ×3 (02:58→18:14)
[2023-06-23 07:53] VITALS: BP 107/56; TEMP 98; O2SAT 98
[2023-06-23] MEDS: FLUOXETINE HCL 20 MG CAPSULE PO SCH ×2 (08:40→17:28)
[2023-06-23] MEDS: ARIPIPRAZOLE 5 MG TABLET PO SCH (08:40)
[2023-06-23] MEDS: ENSURE ENLIVE (VAN) 240 ML LIQUID PO SCH (08:42)
[2023-06-23 15:06] VITALS: BP 104/56; TEMP 98; O2SAT 96
[2023-06-23 20:09] VITALS: BP 121/63; TEMP 98.1; O2SAT 99
[2023-06-24 07:30] VITALS: BP 133/53; TEMP 97.7; O2SAT 96
[2023-06-24] MEDS: ARIPIPRAZOLE 5 MG TABLET PO SCH (08:56)
[2023-06-24] MEDS: FLUOXETINE HCL 20 MG CAPSULE PO SCH ×2 (08:56→16:17)
[2023-06-24] MEDS: ENSURE ENLIVE (VAN) 240 ML LIQUID PO SCH (08:57)
[2023-06-24] MEDS: LORAZEPAM 1 MG TABLET PO PRN ×2 (11:59→21:11)
[2023-06-24 15:43] VITALS: BP 131/59; TEMP 97.4; O2SAT 98
[2023-06-24 22:08] VITALS: BP 140/74; TEMP 98; O2SAT 98
[2023-06-25 08:01] VITALS: BP 100/61; TEMP 98; O2SAT 99
[2023-06-25] MEDS: FLUOXETINE HCL 20 MG CAPSULE PO SCH ×2 (08:24→17:29)
[2023-06-25] MEDS: ARIPIPRAZOLE 5 MG TABLET PO SCH (08:24)
[2023-06-25] MEDS: ENSURE ENLIVE (VAN) 240 ML LIQUID PO SCH (08:25)
[2023-06-25] MEDS: LORAZEPAM 1 MG TABLET PO PRN ×2 (09:44→21:45)
[2023-06-25 15:23] VITALS: BP 127/69; TEMP 98; O2SAT 99
[2023-06-25 19:48] VITALS: BP 114/68; TEMP 98.2; O2SAT 99
[2023-06-26 08:00] VITALS: BP 128/4; TEMP 98.2; O2SAT 97
[2023-06-26] MEDS: FLUOXETINE HCL 20 MG CAPSULE PO SCH ×2 (08:49→16:52)
[2023-06-26] MEDS: ARIPIPRAZOLE 5 MG TABLET PO SCH (08:50)
[2023-06-26] MEDS: ENSURE ENLIVE (VAN) 240 ML LIQUID PO SCH (08:52)
[2023-06-26] MEDS: LORAZEPAM 1 MG TABLET PO PRN ×2 (11:52→19:46)
[2023-06-26 15:41] VITALS: BP 123/68; TEMP 98.2; O2SAT 98
[2023-06-26 20:00] VITALS: BP 114/63; TEMP 97.9; O2SAT 100
[2023-06-27 07:49] VITALS: BP 135/63; TEMP 98.1; O2SAT 100
[2023-06-27] MEDS: FLUOXETINE HCL 20 MG CAPSULE PO SCH ×2 (08:17→16:25)
[2023-06-27] MEDS: ENSURE ENLIVE (VAN) 240 ML LIQUID PO SCH (08:17)
[2023-06-27] MEDS: ARIPIPRAZOLE 5 MG TABLET PO SCH (08:17)
[2023-06-27] MEDS: LORAZEPAM 1 MG TABLET PO PRN ×2 (11:42→18:36)
[2023-06-27 16:13] VITALS: BP 120/57; TEMP 98; O2SAT 99
[2023-06-27 20:27] VITALS: BP 130/59; TEMP 98.4; O2SAT 98
[2023-06-28 08:00] VITALS: BP 123/55; TEMP 98.4; O2SAT 100
[2023-06-28] MEDS: FLUOXETINE HCL 20 MG CAPSULE PO SCH (08:10)
[2023-06-28] MEDS: ARIPIPRAZOLE 5 MG TABLET PO SCH (08:10)
[2023-06-28] MEDS: ENSURE ENLIVE (VAN) 240 ML LIQUID PO SCH (08:11)
== END 2023-06-28 12:15 | disposition home or self-care (01) | DRG 885 ==
LOC: ER 15:43 → UNDOADMIN 16:37 → MEDSURG3 16:37 → GPS 18:47
PROVIDERS: ADMIT Psychiatry & Neurology Psychiatry; ATTEND Nurse Practitioner Acute Care
DX: F33.2 Major depressive disorder, recurrent severe without psychotic features (principal); E44.1 Mild protein-calorie malnutrition; T76.11XA Adult physical abuse, suspected, initial encounter; R45.851 Suicidal ideations; F41.9 Anxiety disorder, unspecified; E87.6 Hypokalemia; E88.09 Other disorders of plasma-protein metabolism, not elsewhere classified; Z59.00 Homelessness unspecified; Z87.440 Personal history of urinary (tract) infections; Z90.49 Acquired absence of other specified parts of digestive tract; R79.89 Other specified abnormal findings of blood chemistry; F10.11 Alcohol abuse, in remission; G89.29 Other chronic pain; K08.89 Other specified disorders of teeth and supporting structures; R07.9 Chest pain, unspecified
CPT/HCPCS: 36415; 71045; 84484; 85025; 93005; G0480

== ENCOUNTER 2025-01-06 00:25 | Emergency (ER) | payer MEDICARE, OTHER ==
[~2025-01-06] VITALS: Ht 160 cm; Wt 68.0 kg
[2025-01-06] MEDS ORDERED: OXYCODONE/APAP 5-325 MG TABLET ONE ×2 (00:52→00:54)
[2025-01-06] MEDS ORDERED: CARISOPRODOL 350 MG TABLET ONE (00:52)
[2025-01-06] MEDS ORDERED: CARI350T PO (00:53)
[2025-01-06] MEDS ORDERED: OXYC-128 PO ×2 (00:53→00:56)
[2025-01-06] MEDS ORDERED: CARI350T27 PO (00:56)
[2025-01-06] MEDS: CARISOPRODOL 350 MG TABLET PO ONE (01:04)
[2025-01-06] MEDS: OXYCODONE/APAP 5-325 MG TABLET PO ONE (01:04)
[2025-01-06 01:38] VITALS: BP 152/74; TEMP 208; O2SAT 98
== END 2025-01-06 01:39 | disposition home or self-care (01) ==
LOC: ER 00:29
DX: M54.2 Cervicalgia (principal); M54.6 Pain in thoracic spine; F17.210 Nicotine dependence, cigarettes, uncomplicated; Z79.899 Other long term (current) drug therapy; Z86.16 Personal history of COVID-19; W01.0XXA Fall on same level from slipping, tripping and stumbling without subsequent striking against object, initial encounter; Y93.9 Activity, unspecified; Y92.9 Unspecified place or not applicable; Y99.9 Unspecified external cause status
CPT/HCPCS: A4606; A4663